=== PATIENT | male | born 1955 | race Caucasian/White ===

== ENCOUNTER 2020-06-24 06:54 | Observation (INO) ==
--- NOTE | 2020-06-16 09:01 | PAT Medication Instructions ---
Medication Instructions Date of Service June 16, 2020 Home Medications Medication Instructions Recorded oxycodone-acetaminophen [Percocet] 1 - 2 tab PO Q6H PRN #40 tab 03/28/18 multivitamin 1 tab PO QAM naproxen sodium [Aleve] 220 mg PO BID PRN atorvastatin 10 mg PO QPM oxycodone-acetaminophen [Percocet] 1 - 2 tab PO Q6H PRN metformin 1,000 mg PO BID ASK your surgeon for instructions naproxen sodium [Aleve] 220 mg PO BID PRN DO NOT take the morning of surgery multivitamin 1 tab PO QAM metformin 1,000 mg PO BID Take morning of surgery With a small sip of water, OTHERWISE NOTHING TO EAT OR DRINK AFTER MIDNIGHT: oxycodone-acetaminophen [Percocet] 1 - 2 tab PO Q6H PRN (okay to take up to 4 hours prior to surgery if needed) Take evening before surgery atorvastatin 10 mg PO QPM oxycodone-acetaminophen [Percocet] 1 - 2 tab PO Q6H PRN (if needed) metformin 1,000 mg PO BID Other Notes If you have any questions please call us at [phone] or [phone] or [phone] or [phone]
--- NOTE | 2020-06-18 11:24 | Anesthesiology Consultation ---
Date of Service June 18, 2020 Assessment & Plan (1) Encounter for pre-operative examination: - Per assessment on 06/18: Travel screen- Traveled to [place] (06/12/20) for golf shopping for new clubs. No further travel planned prior to surgery. No known COV ID-19 positive contacts or current COVID-19 related symptoms. Surgeon arranging preop COVID testing (done 06/18 at [facility] [place]). Awaiting results. - Check BSG AM DOS - S/P Right shoulder arthroscopy with RCR: 03/28/18: LMA#5, atraumatic attempt x1 + PNB at [facility] [place] Chart Review Chart Review: Acceptable Risk for Surgery and Patient seen in Pre Admission Testing Teaching & Discussion Pre-Anesthesia Teaching/Discussion Notes: Instructed NPO after midnight before surgery,except medications with 15 cc of water. Medication instructions pro vided according to the PAT guidelines. History Surgery Operation Date: 06/24/20 09:25 Proposed Procedures p Left Knee Poly Exchange - Cooper Tsai MD Height/Weight Height: 5 ft 8 in Weight: 135 kg Allergies Allergy/AdvReac Type Severity Reaction Status Date / Time adhesive Allergy Mild Bandaids- Verified 06/24/20 07:40 rash Medications Home Medications Medication Instructions Recorded Confirmed Last Taken multivitamin 1 tab PO QAM 03/13/18 06/24/20 06/23/20 06:00 naproxen sodium [Aleve] 220 mg PO BID PRN 03/13/18 06/24/20 Unknown atorvastatin 10 mg PO QPM 03/25/18 06/24/20 06/23/20 20:00 metformin 1,000 mg PO BID 06/15/20 06/24/20 06/23/20 20:00 Active Medications Generic Name Dose Route Start Last Admin Trade Name Freq PRN Reason Stop Dose Admin Acetaminophen 1,000 mg 06/24/20 06:00 06/24/20 08:05 Acetaminophen 500 Mg Tab PO 06/24/20 18:00 1,000 mg PREOP SHERMAN Administration Celecoxib 200 mg 06/24/20 06:00 06/24/20 08:05 Celebrex 200 Mg Cap PO 06/24/20 18:00 200 mg PREOP SHERMAN Administration Famotidine 20 mg 06/24/20 06:00 06/24/20 08:06 Famotidine 20 Mg Tab PO 06/24/20 18:00 20 mg PREOP SHERMAN Administration Gabapentin 300 mg 06/24/20 06:00 06/24/20 08:06 Gabapentin 300 Mg Cap PO 06/24/20 18:00 300 mg PREOP SHERMAN Administration Lactated Ringer's 1,000 mls @ 15 mls/hr 06/24/20 06:00 06/24/20 07:34 Lr IV 06/24/20 18:00 500 mls/hr .Q24H SHERMAN Administration Vancomycin HCl 2,000 mg/ 540 mls @ 200 mls/hr 06/24/20 06:00 06/24/20 07:34 Sodium Chloride IV 06/24/20 18:00 200 mls/hr PREOP SHERMAN Administration Metoclopramide HCl 10 mg 06/24/20 06:00 06/24/20 08:06 Metoclopramide Hcl 10 Mg Tablet PO 06/24/20 18:00 10 mg PREOP SHERMAN Administration Past Medical History Medical History Cancer skin (s/p excision from nose/head/chest) Chronic back pain Hyperlipidemia Morbid obesity Osteoarthritis Pre-diabetes on Metformin Sleep apnea CPAP (compliant) Exercise / Class Metabolic Activity II 4-5 Yardwork/Stairs/Walk up hill (one flight of stairs (no chest pain/no sob )) Past Family History Family History Father Diabetes Past Surgical History Surgical History History of carpal tunnel release R/L History of colonoscopy History of herniorrhaphy umbilical History of tooth extraction History of total knee replacement R/L (2012) Hx of repair of rotator cuff Right shoulder arthroscopy with RCR: 03/28/18: LMA#5, atraumatic attempt x1 + PNB at [facility] [place] Past Anesthesia History No Hx of Anesthesia Complications and No Family Hx of Anesthesia Complications History of PONV No Hx of PONV and Hx of Motion Sickness Social History Smoking Status: Never smoker Do You Dip or Chew Tobacco: No Hx Alcohol Use: Yes Alcohol type: beer alcohol intake frequency: a few times a month Hx Substance Use: No substance use type: does not use Review of Systems Patient denies chest pain, shortness of breath, dyspnea on exertion, fever, chills, cough, wheezing, palpitations. Physical Exam Vital Signs Last Vital Signs Temp 37 C 06/24/20 08:19 Pulse 83 06/24/20 08:19 Resp 20 06/24/20 08:19 BP 125/74 06/24/20 08:19 Pulse Ox 92 06/24/20 08:19 VITALS BP 136/83 P 78 TEMP 98.2 SP02 96%RA RESP 18 PHYSICAL Full neck and c-spine range of motion. Full TMJ range of motion. TMD 3 finger breaths (difficult to palpate) Mallampati Score 4 Dentition: intact, + bridges (upper r/l sides) Lungs: clear throughout to auscultation Cardiac: regular rate and rhythm, no murmurs noted Spine: normal Carotid arteries: negative bruit Extremities: no edema Short, thick neck Testing Laboratory Results 06/18/20 11:42 06/18/20 12:05 PT 10.2 Seconds (9.0-12.0) 06/18/20 11:42 INR 1.0 (0.9-1.1) 06/18/20 11:42 APTT 24.2 Seconds (21.0-31.0) 06/18/20 11:42 Hemoglobin A1c 6.0 % (4.5-5.6) H 06/18/20 11:42 Urine Color Yellow 06/18/20 08:31 Urine Appearance Clear (Clear) 06/18/20 08:31 Urine pH 6.0 (4.5-7.5) 06/18/20 08:31 Ur Specific [place] 1.017 (1.000-1.030) 06/18/20 08:31 Urine Protein Negative (Negative) 06/18/20 08:31 Urine Glucose (UA) Negative (Negative) 06/18/20 08:31 Urine Ketones Negative (Negative) 06/18/20 08:31 Urine Nitrite Negative (Negative) 06/18/20 08:31 Ur Leukocyte Esterase Negative (Negative) 06/18/20 08:31 Blood Type AB Positive 06/18/20 11:42 Antibody Screen NEGATIVE 06/18/20 11:42 06/24/20 07:30 POC Glucose 123 H Electrocardiogram Date: 06/18/20 Findings: + NSR @ (82) Chest X-Ray Date: 02/05/21 FINDINGS: PA and lateral chest radiographs are compared to study dated 11/15/2012. The heart is enlarged. The pulmonary vasculature is noncongested. Chronic resid ual thickening is similar to previous. There is mild bibasilar scarring/atelectasis. No airspace consolidation or pleural effusion is identified. There is no pneumothorax. The skeletal structures are osteopenic. The bony thorax appears intact. IMPRESSION: Cardiomegaly with no active disease in the chest.
[2020-06-18 12:08] LABS: Basophils % (auto) 1.7 %; Eosinophils # (auto) 0.26 K/uL (0-0.5); Eosinophils % (auto) 4.3 %; Hematocrit (blood only) 48.7 % (42-52); Hemoglobin 16.5 g/dL (14.0-18.0); Immature Granulocytes # (auto) 0.01 K/uL (0.00-0.02); Immature Granulocytes % (auto) 0.2 %; Lymphocytes # (auto) 1.84 K/uL (1.2-3.4); Lymphocytes % (auto) 30.5 %; Mean Corpuscular Hemoglobin 30.1 pg (25-34); Mean Corpuscular Hgb Conc 33.9 g/dL (32-36); Mean Corpuscular Volume 88.9 fL (80-100); Monocytes # (auto) 0.69 K/uL (0.11-0.59); Monocytes % (auto) 11.4 %; Neutrophils # (auto) 3.14 K/uL (1.4-6.5); Neutrophils % (auto) 51.9 %; Platelet Count 218 K/uL (130-400); RDW Coefficient of Variation 14.3 % (11.5-14.5); RDW Standard Deviation 46.4 fL (36.4-46.3); Red Blood Count 5.48 M/uL (4.7-6.1); White Blood Count 6.04 K/uL (4.8-10.8)
[2020-06-18 12:16] LABS: Estimated Average Glucose 126 mg/dl
[2020-06-18 12:18] LABS: Appearance Urine Clear (Clear); Bilirubin Urine Negative (Negative); Blood Urine Negative (Negative); Color Urine Yellow; Glucose Urine UA Negative (Negative); Ketones Urine Negative (Negative); Leukocyte Esterase Urine Negative (Negative); Nitrite Urine Negative (Negative); Protein Urine Negative (Negative); Specific Gravity Urine 1.017 (1.000-1.030); Urobilinogen Urine Negative (Negative)
[2020-06-18 12:23] LABS: Partial Thromboplastin Ratio 0.9; Partial Thromboplastin Time 24.2 Seconds (21.0-31.0); Prothrombin Time 10.2 Seconds (9.0-12.0)
[2020-06-18 12:32] LABS: Albumin Level 3.9 gm/dl (3.4-5.0); Calcium 9.4 mg/dl (8.5-10.1); Creatinine Clr Calc Pharmacy 117.7 ml/min; Est GFR (African American) 106.3; Est GFR (Non-African American) 91.7; Potassium 4.7 mmol/L (3.5-5.1)
--- NOTE | 2020-06-18 12:41 | XRay Report ---
TWO VIEW CHEST CLINICAL HISTORY: Preoperative examination. FINDINGS: PA and lateral chest radiographs are compared to study dated 11/15/2012. The heart is enlarge d. The pulmonary vasculature is noncongested. Chronic residual thickening is similar to previous. The re is mild bibasilar scarring/atelectasis. No airspace consolidation or pleural effusion is identifie d. There is no pneumothorax. The skeletal structures are osteopenic. The bony thorax appears intact. IMPRESSION: Cardiomegaly with no active disease in the chest. ACT 112: Negative or not required by law. Electronically signed by: Tiago Licona M.D. 06/18/2020 12:40 PM
--- NOTE | 2020-06-18 13:48 | Electrocardiogram Report ---
Test Reason : Blood Pressure : / mmHG Vent. Rate : 082 BPM Atrial Rate : 082 BPM P-R Int : 166 ms QRS Dur : 074 ms QT Int : 362 ms P-R-T Axes : 074 059 046 degrees QTc Int : 422 ms Normal sinus rhythm Normal ECG When compared with ECG of 12-MAR-2018 14:08, No significant change was found Confirmed by Bob Stevenson ([id number]) on 06/18/2020 1:47:47 PM Referred By: Cooper Tsai Confirmed By:Bob Stevenson
--- NOTE | 2020-06-19 10:02 | History & Physical Report ---
Date of Service June 19, 2020 Assessment & Plan (1) Left knee injury: Patient with work injury to left knee causing fracture of the polyethylene post of his total knee arthroplasty. No evidence of loosening of the metal components of his total knee. Treatment options discussed and surgical intervention was recommended. Risks, benefits and alternatives to surgery including but not limited to infection, DVT, pain, stiffness, need for revision surgery, damage to blood vessels, damage to nerves, PE, , were discussed with the patient and they wish to proceed. Plan will be for left total knee arthroplasty polyethylene exchange. Will need constrained liners available. Surgery scheduled for 06/24/20 at [facility]. All questions answered. Will plan on ASA 81mg BID x 1 mo post op for DVT prophylaxis. F/u post operatively. (2) Instability of left knee joint: (3) History of total knee arthroplasty: Laterality: left Qualified Code(s): Z96.652 - Presence of left artificial knee joint History of Present Illness Chief Complaint: Left knee pain, instability Primary Care Provider: Maximilian Mckeon MD Patient is a 65 year old male with PMHx significant for DM2, BCC, bilateral TKA who presented to the office after a fall at work onto his left knee. He had complaint of pain and instability. On exam it was noted that the had significant instability in the anteroposterior plane indicating a fracture polyethylene bearing. Discussed that he will require surgical intervention and he would like to proceed. Patient denies headaches, sweats, fevers, chills, double vision, blurred vision, cough, sore throat, dysphagia, chest pain, sob, wheezing, n/v/ d/c, numbness, tingling, fatigue, urinary symptoms, mood disorders. ROS positive for left knee pain and instability. Allergies Allergy/AdvReac Type Severity Reaction Status Date / Time adhesive Allergy Mild Bandaids- Verified 06/18/20 10:04 rash Home Medications Medication Instructions Recorded Confirmed Type multivitamin 1 tab PO QAM 03/13/18 06/15/20 History naproxen sodium [Aleve] 220 mg PO BID PRN 03/13/18 06/15/20 History atorvastatin 10 mg PO QPM 03/25/18 06/15/20 History metformin 1,000 mg PO BID 06/15/20 06/15/20 History Past Med/Surg History Medical History Cancer skin (s/p excision from nose/head/chest) Chronic back pain Hyperlipidemia Morbid obesity Osteoarthritis Pre-diabetes on Metformin Sleep apnea CPAP (compliant) Surgical History History of carpal tunnel release R/L History of colonoscopy History of herniorrhaphy umbilical History of tooth extraction History of total knee replacement R/L (2012) Hx of repair of rotator cuff Right shoulder arthroscopy with RCR: 03/28/18: LMA#5, atraumatic attempt x1 + PNB at [facility] [place] Family History Father Diabetes Social History Smoking Status: Never smoker Second Hand Exposure: No; Do You Dip or Chew Tobacco: No; Tobacco Cessation Education Requested by Patient: No Hx Alcohol Use: Yes Alcohol type: beer Hx Substance Use: No Preferred Language: [place] Communication Ability: Effective Tile Setter Apprentice Required: No Beliefs That Will Affect Care: None Current Living Situation: Spouse Other Information That Helps Us Care for You: No Feels Safe at Home: Yes Safety Concerns: Feels Safe At This Time Assistive Devices: CPAP and Glasses Assistive Devices Comment: BRIDGE TO TOP Review of Systems All systems reviewed & are unremarkable except as noted in HPI & below Physical Exam Constitutional: well developed and well nourished; no acute distress Eyes: PERRL, conjunctivae normal, anicteric sclerae ENMT: external ear and nose normal, oropharynx normal Neck: trachea midline, no thyromegaly Respiratory: normal respiratory effort, lungs clear to auscultation Cardiovascular: RRR, no murmur, no edema Musculoskeletal: Left knee: ROM-0-95 degrees. He has subluxation of his tibia on femur with passive flexion and extension in anteroposterior plane. No endpoint with posterior drawer of the polyethylene post on cam of total knee consistent with fracture of poly. Mild effusion. No erythema. Incision well healed. Stable to valus and varus stress in extension. Negative SLR. No defects medial retinaculum or quad tendon. Neurologic: patellar DTR's 2+ bilat, sensation intact Psychiatric: A+Ox3, euthymic affect Results & Data ([facility]) Laboratory Results Lab Results 02/05/21 02/05/21 02/05/21 Range/Units 08:31 11:42 11:42 WBC 6.04 (4.8-10.8) K/uL RBC 5.48 (4.7-6.1) M/uL Hgb 16.5 (14.0-18.0) g/dL Hct 48.7 (42-52) % MCV 88.9 (80-100) fL MCH 30.1 (25-34) pg MCHC 33.9 (32-36) g/dL RDW Std Deviation 46.4 H (36.4-46.3) fL RDW Coeff of Melanie 14.3 (11.5-14.5) % Plt Count 218 (130-400) K/uL MPV 11.0 H (7.4-10.4) fL Immature Gran % (Auto) 0.2 % Neut % (Auto) 51.9 % Lymph % (Auto) 30.5 % [place] % (Auto) 11.4 % Eos % (Auto) 4.3 % Baso % (Auto) 1.7 % Neut # (Auto) 3.14 (1.4-6.5) K/uL Lymph # (Auto) 1.84 (1.2-3.4) K/uL [place] # (Auto) 0.69 H (0.11-0.59) K/uL Eos # (Auto) 0.26 (0-0.5) K/uL Baso # (Auto) 0.10 (0-0.2) K/uL Immature Gran # (Auto) 0.01 (0.00-0.02) K/uL PT (9.0-12.0) Seconds INR (0.9-1.1) APTT (21.0-31.0) Seconds PTT Ratio Sodium (136-145) mmol/L Potassium (3.5-5.1) mmol/L Chloride (98-107) mmol/L Carbon Dioxide (21-32) mmol/L Anion Gap (3-11) BUN (7-18) mg/dl Creatinine (0.6-1.4) mg/dl Est Cr Clr Drug Dosing ml/min Est GFR ( Amer) Est GFR (Non-Af Amer) BUN/Creatinine Ratio (10-20) Glucose (70-99) mg/dl Estimat Average Glucose mg/dl Hemoglobin A1c (4.5-5.6) % Calcium (8.5-10.1) mg/dl Albumin (3.4-5.0) gm/dl Urine Color Yellow Urine Appearance Clear (Clear) Urine pH 6.0 (4.5-7.5) Ur Specific [place] 1.017 (1.000-1.030) Urine Protein Negative (Negative) Urine Glucose (UA) Negative (Negative) Urine Ketones Negative (Negative) Urine Blood Negative (Negative) Urine Nitrite Negative (Negative) Urine Bilirubin Negative (Negative) Urine Urobilinogen Negative (Negative) Ur Leukocyte Esterase Negative (Negative) Blood Type AB Positive Antibody Screen NEGATIVE 06/18/20 06/18/20 06/18/20 Range/Units 11:42 11:42 12:05 WBC (4.8-10.8) K/uL RBC (4.7-6.1) M/uL Hgb (14.0-18.0) g/dL Hct (42-52) % MCV (80-100) fL MCH (25-34) pg MCHC (32-36) g/dL RDW Std Deviation (36.4-46.3) fL RDW Coeff of Melanie (11.5-14.5) % Plt Count (130-400) K/uL MPV (7.4-10.4) fL Immature Gran % (Auto) % Neut % (Auto) % Lymph % (Auto) % [place] % (Auto) % Eos % (Auto) % Baso % (Auto) % Neut # (Auto) (1.4-6.5) K/uL Lymph # (Auto) (1.2-3.4) K/uL [place] # (Auto) (0.11-0.59) K/uL Eos # (Auto) (0-0.5) K/uL Baso # (Auto) (0-0.2) K/uL Immature Gran # (Auto) (0.00-0.02) K/uL PT 10.2 (9.0-12.0) Seconds INR 1.0 (0.9-1.1) APTT 24.2 (21.0-31.0) Seconds PTT Ratio 0.9 Sodium 139 (136-145) mmol/L Potassium 4.7 (3.5-5.1) mmol/L Chloride 106 (98-107) mmol/L Carbon Dioxide 27 (21-32) mmol/L Anion Gap 6.0 (3-11) BUN 18 (7-18) mg/dl Creatinine 0.83 (0.6-1.4) mg/dl Est Cr Clr Drug Dosing 117.7 ml/min Est GFR ( Amer) 106.3 Est GFR (Non-Af Amer) 91.7 BUN/Creatinine Ratio 22.0 H (10-20) Glucose 91 (70-99) mg/dl Estimat Average Glucose 126 mg/dl Hemoglobin A1c 6.0 H (4.5-5.6) % Calcium 9.4 (8.5-10.1) mg/dl Albumin 3.9 (3.4-5.0) gm/dl Urine Color Urine Appearance (Clear) Urine pH (4.5-7.5) Ur Specific [place] (1.000-1.030) Urine Protein (Negative) Urine Glucose (UA) (Negative) Urine Ketones (Negative) Urine Blood (Negative) Urine Nitrite (Negative) Urine Bilirubin (Negative) Urine Urobilinogen (Negative) Ur Leukocyte Esterase (Negative) Blood Type Antibody Screen Diagnostic Findings Left knee: Bermeo and Nephew Journey II total knee arthroplasty in stable position. No evidence of loosening. Patella midline, tracking well. No fracture noted.
[~2020-06-24 06:54] MED LIST: ACETAMINOPHEN 500 MG TAB PO SCH; BUPIVACAINE 0.25% 30 ML VIAL ONE; BUPIVACAINE 0.5 % 5 MG/1 ML PF 10ML VIAL ONE; CeleBREX 200 MG CAP PO SCH; FAMOTIDINE 20 MG TAB PO SCH; GABAPENTIN 300 MG CAP PO SCH; LR 500ML BOLUS, THEN 15ML/HR IV SCH; METOCLOPRAMIDE HCL 10 MG TABLET PO SCH; ROPIVACAINE 0.5% HCL/PF 150 MG, BUPIVACAINE 0.75% MPF 20 ML, EPINEPHrine 30MG/30ML (OR ... INSTIL SCH; TRANEXAMIC ACID 1,000 MG **IV Intra-op IV SCH; TRANEXAMIC ACID 1,000 MG **IV Pre-op IV SCH; VANCOMYCIN HCL 2,000 MG in SODIUM CHLORIDE 0.9% 500 ML IV SCH
[2020-06-24] MEDS ORDERED: PROPOFOL IV EMULSION 10 MG/ML 20 ML VIAL IV ONE (08:08)
[2020-06-24] MEDS ORDERED: MIDAZOLAM HCL 1 MG/ML 2ML VIAL ONE ×2 (08:08→08:09)
[2020-06-24] MEDS ORDERED: LIDOCAINE HCL 2% 2 ML VIAL/AMP(20MG/ML) INFIL ONE (08:08)
[2020-06-24] MEDS ORDERED: LARYING-O-JET KIT (LTA) ONE (08:53)
[2020-06-24] MEDS ORDERED: fentaNYL citrate 100 MCG/2 ML VIAL ONE (08:53)
[2020-06-24] MEDS ORDERED: ONDANSETRON INJ 2 MG/ML 2 ML VIAL ONE (08:53)
[2020-06-24] MEDS ORDERED: DEXAMETHASONE SOD INJ 4 MG/ML VIAL ONE (08:53)
[2020-06-24] MEDS ORDERED: SUCCINYLCHOLINE CHLORIDE 20 MG/ML 10 ML VIAL IV ONE (08:53)
[2020-06-24] MEDS ORDERED: ONDANSETRON INJ 2 MG/ML 2 ML VIAL IV PRN ×2 (09:00→13:56)
[2020-06-24] MEDS ORDERED: ATROPINE SULFATE 0.1 MG/ML 10ML SYR IV PRN (09:00)
[2020-06-24] MEDS ORDERED: HYDROmorphone INJ 1 MG/ML SYRINGE IV PRN (09:00)
[2020-06-24] MEDS ORDERED: fentaNYL citrate 100 MCG/2 ML VIAL IV PRN (09:00)
[2020-06-24] MEDS ORDERED: ePHEDrine sulfate 50 MG/ML AMP IV PRN (09:00)
--- NOTE | 2020-06-24 09:36 | History & Physical Bridge Note ---
Date of Service June 24, 2020 History & Physical Bridge Note I have examined the patient, reviewed the History & Physical and in the interval since the performance of the History & Physical I have noted the following changes of clinical significance: no changes noted
[2020-06-24] MEDS ORDERED: BACITRACIN INJ 50,000 UNIT VIAL ONE (09:44)
[2020-06-24] MEDS ORDERED: ORTHO JOINT ANESTHETIC ONE (09:44)
--- NOTE | 2020-06-24 12:00 | Post Operative Brief Note ---
Immediate Post Op Note v1 Date of Surgery June 24, 2020 Pre & Post Diagnosis Operation Date: 06/24/20 09:25 Pre-Op Diagnosis: Left total knee replacement posttraumatic fractured Polyethylene Liner Post-Op Diagnosis: Left total knee replacement posttraumatic fractured Polyethylene Liner, synovitis, heterotopic ossification I identified the patient and participated in the time-out.: Yes Procedure Operation Date: 06/24/20 09:25 Actual Procedures p Left Knee Poly Exchange; Synovectomy, Excision of Heterotopic Bone(Left) - Cooper Tsai MD Surgeon Cooper Tsai MD Dielectric Testing Machine Operator Martin BASILIO Estimated Blood Loss 10 Findings Consistent with Post-Op Diagnosis Drains Hemovac Drain Anesthesia Type MAC Spinal Regional Complications none Disposition Accompanied Patient To Recovery: No Disposition: Recovery Room Overlapping Procedure I was immediately available: during the entire case.
--- NOTE | 2020-06-24 12:12 | Operative Report ---
Post Operative Report Pre & Post Diagnosis Operation Date: 06/24/20 09:25 Pre-Op Diagnosis: Left total knee replacement posttraumatic fractured Polyethylene Liner Post-Op Diagnosis: Left total knee replacement posttraumatic fractured Polyethylene Liner, synovitis, heterotopic ossification I identified the patient and participated in the time-out.: Yes Procedure Operation Date: 06/24/20 09:25 Actual Procedures p Left Knee Poly Exchange; Synovectomy, Excision of Heterotopic Bone(Left) - Cooper Tsai MD Surgeon Cooper Tsai MD Precision Layout Worker Martin BASILIO Estimated Blood Loss 10 Findings Consistent with Post-Op Diagnosis Specimens Synovium Drains 2 Hemovac Anesthesia Type MAC Spinal Regional Complications none Disposition Accompanied Patient To Recovery: No Disposition: Recovery Room Indications 65-year-old male post left knee replacement 2012 doing well until recent injury when he fell off a ladder and developed instability of his knee replacement with exam consistent with fracture polyethylene post of a posterior stabilized total knee replacement Description of Procedure Patient was placed under spinal MAC regional block anesthesia. A pneumatic tourniquet was placed by his obese left upper thigh. Left knee exam demonstrated he had varus valgus instability and posterior instability with increased posterior drawer and subluxation consistent with fracture polyethylene post. Range of motion was 0 through 95 degrees. Moderate effusion. No erythema drainage or signs of infection. Left lower extremity was prepped and draped in usual sterile fashion. Leg was elevated exsanguinated with Esmarch bandage and pneumatic tourniquet was raised to 350 mmHg. A longitudinal incision was made through his previous scar. Scarred subcutaneous fat was elevated off the fascia. An incision was made to the medial retinaculum extending up to the mid third of the quadriceps tendon and extended down to the medial tibial tubercle. Let us make an incision to the retinaculum I encountered several areas of heterotopic ossification within the medial retinacular repair from previous surgery. These areas of bone were shelled out from the remainder of the tendon tissue and excised. There was a moderate knee effusion noted no signs of infection. Patient had scarred synovium and some [place]. The retropatellar fat pad was significantly scarred as well. This was adherent to the anterior tibia. The tibial polyethylene was fractured with a large piece of the post being fractured off at the base of its attachment to the remainder of the tibial polyethylene. This was in the notch and easily retrievable and removed. To gain further exposure and remove the scarred synovium a synovectomy was performed with electrocautery. Both medial and lateral gutters and suprapatellar scarred synovial tissue was resected. Some releases were performed around the proximal medial lateral tibial plateau to get exposure and the scarred retropatellar fat pad was resected down to the tendon and the tendon was freed up off the anterior tibia leaving the tibial tubercle attachment intact. All components were stable patella femur and tibia. Retractors were placed and the main to the tibial polyethylene was removed. There is some bone behind the cam of the femoral component which was resected to clear the space for the new post. And some synovium in the posterior capsule was resected. The knee was then copiously irrigated with antibiotic solution with bacitracin. Trial reduction was performed and a 6 x 11 mm posterior stabilized Bermeo & Nephew polyethylene insert gave stable range of motion and was appropriate fit. The trial was removed and orthomix was injected and furthe r irrigation of the knee performed. The final component which was the 5-611 mm left tibial polyethylene Bermeo & Nephew posterior stabilized polyethylene component was inserted with insertion device with stable fixation. Knee had full stability through full range of motion. Betadine soak was used for the orthomix was injected into the subcutaneous tissues. Further irrigation was performed with saline solution. 2 drains were placed brought out laterally. The quadriceps tendon and medial retinaculum were closed with [id number] #1 Vicryl sutures. The knee was taken through range of motion and the pair secure through full range of motion which was 0 through 115 degrees. The subcutaneous tissues were closed into 2-0 Vicryl sutures skin was closed with tito sterile dressings were applied. The patient tolerated procedure well. Martin BASILIO has been for lead dental assistant function as persistent with leg positioning prepping draping soft tissue retraction and assisted in the subcut aneous and skin closure and will participate in postop care the patient. Thank you I attest to the content of the Intraoperative Record and any orders documented therein. Any exceptions are noted below.
--- NOTE | 2020-06-24 12:48 | XRay Report ---
XR knee LT 1 or 2V routine CLINICAL HISTORY: Surgical Post Op COMPARISON: 03/19/2013 DISCUSSION: There are postsurgical changes of a total left knee arthroplasty and patellar resurfacing . Femoral tibial components appear well seated. There are overlying skin tito and surgical drains. . IMPRESSION: Postsurgical changes of a total left knee arthroplasty. ACT 112: Negative or not required by law. Electronically signed by: Jose Luis Long M.D. 06/24/2020 12:47 PM
[2020-06-24] MEDS: SODIUM CHLORIDE 0.9% 1000ML 1,000 ML IV SCH (13:55)
[2020-06-24] MEDS ORDERED: NON-FORMULARY MEDICATION (Naproxen Sodium [Aleve] 220 mg Capsule) PO PRN (13:56)
[2020-06-24] MEDS ORDERED: METOCLOPRAMIDE HCL INJ 5 MG/ML 2 ML VIAL IV PRN (13:56)
[2020-06-24] MEDS ORDERED: HYDROmorphone INJ 0.5 MG/0.5 ML SYR IV PRN (13:56)
[2020-06-24] MEDS ORDERED: bisacodyL 10 MG SUPP PR PRN (13:56)
[2020-06-24] MEDS ORDERED: MAGNESIUM HYDROXIDE SUSP 30 ML UDC PO PRN (13:56)
[2020-06-24] MEDS ORDERED: NALOXONE HCL 0.4 MG/1 ML VIAL/CARP IV PRN (13:56)
[2020-06-24] MEDS ORDERED: TAMSULOSIN HCL 0.4 MG CAP PO PRN (13:56)
[2020-06-24] MEDS ORDERED: PHARMACY GLYCEMIC MGMT CONSULT PRN (14:11)
[2020-06-24] MEDS ORDERED: INFLUENZA ADMINISTRATION CHARGE ONE (14:28)
[2020-06-24] MEDS ORDERED: INFLUENZA VACCINE HIGH DOSE 65+ 0.7 ML SYR IM ONE (14:28)
--- NOTE | 2020-06-24 14:29 | Pharmacy Report ---
Glycemic Ortho Sign Off Note - Date of Service June 24, 2020 - Scope Glycemic Pharmacist consulted for glycemic control and to write orders per [facility] inpatient glycemic control protocol. - Objective Accuchecks BSG (last 24hrs):: 06/24/20 06/24/20 07:30 12:09 POC Glucose 123 H 123 H HbA1c:: Hemoglobin A1c 6.0 % (4.5-5.6) H 06/18/20 11:42 - Assessment * Pt is maintained on oral antidiabeticagent[s]as anoutpatient with excellent control per recent A1c * Oral agents are not recommended for inpatient use d/t drug interactions, changing PO intake, and difficulty titrating for acute hyper/hypoglycemia. * Recommended regimen for inpatient use is SQ insulin * Low stress weight based insulin dosing appropriate since patient has minimal risk factors for insulin resistance (i.e. no steroids). * Appropriate to DC insulin and resume outpatient antidiabetic regimen at discharge * Goal is to maintain BSGs <200 mg/dl (ideally <150 mg/dl) to prevent post op complications - Plan For Inpatient Glycemic Control * Basal insulin * Not needed based on A1c, pre-op BSGs, and minimal risk factors for insulin resistance * Bolus insulin * Utilize low stress weight based NovoLog parameters per scale ACHS * Pharmacy has entered glycemic orders and is signing off of the glycemic cons ult. We will no longer be making adjustments to inpatient regimen. Please feel free to re-consult if needed. Thank you.
[2020-06-24] MEDS: ACETAMINOPHEN 500 MG TAB PO SCH ×2 (14:40→21:21)
[2020-06-24] MEDS: INSULIN ASPART 100 UNITS/ML 3 ML PEN SC SCH ×3 (14:57→21:30)
--- NOTE | 2020-06-24 15:50 | Anesthesiology Progress Note ---
Date of Service June 24, 2020 Anesthesia Post Procedure Vital Signs Vital Signs: Temp Pulse Pulse Pulse Resp BP BP 06/24/20 15:01 36.3 C L 73 16 106/67 06/24/20 14:30 36.6 C 86 19 121/79 06/24/20 14:29 36.6 C 121/79 06/24/20 13:56 36.3 C L 78 16 108/68 06/24/20 13:35 36.2 C L 72 17 107/67 06/24/20 13:25 73 17 111/63 06/24/20 13:15 72 20 109/65 06/24/20 13:05 79 19 111/69 06/24/20 12:55 73 17 110/67 06/24/20 12:45 78 20 119/75 06/24/20 12:35 78 19 116/67 06/24/20 12:25 68 17 110/67 06/24/20 12:15 74 18 116/67 06/24/20 12:07 36.1 C L 89 16 123/56 L 06/24/20 08:19 37 C 83 20 125/74 06/24/20 07:36 37 C 93 H 20 154/110 H Pulse Ox 06/24/20 15:01 97 06/24/20 14:30 96 06/24/20 14:29 97 06/24/20 13:56 96 06/24/20 13:35 96 06/24/20 13:25 97 06/24/20 13:15 96 06/24/20 13:05 98 06/24/20 12:55 96 06/24/20 12:45 97 06/24/20 12:35 97 06/24/20 12:25 96 06/24/20 12:15 92 06/24/20 12:07 92 06/24/20 08:19 92 06/24/20 07:36 96 Transfer of Care Handoff Completed per policy Notes Mental Status: alert / awake / arousable and participated in evaluation Nausea / Vomiting: adequately controlled Pain: adequately controlled Airway Patency, RR, SpO2: stable & adequate BP & HR: stable & adequate Hydration State: stable & adequate Neuraxial Anesthesia: was administered and sensory block is resolving Anesthetic Complications: no major complications apparent and Pt Satisfied with anesthetic care
--- NOTE | 2020-06-24 16:01 | Hospitalist Consultation ---
Date of Consultation June 24, 2020 Assessment & Plan (1) S/P knee surgery: This is a 65yo M with a PMH of prediabetes, HLD and other medical problems listed below who is POD#0 s/p L knee poly Exchange, synovectomy and excision of heterotopic bone by Dr. Tsai. POD#0 s/p L knee poly Exchange, synovectomy and excision of heterotopic bone by Dr. Tsai Pt is doing well post-operatively Per ortho for pain control, wound care, anticoagulation and activities Monitor H&H, continue incentive spirometry, PT/OT when appropriate (2) Hyperlipidemia: Continue pravastatin (3) Prediabetes: A1c 5.8 in Dec 2019. Holding metformin while in-patient. SSI per protocol. BSG AC HS (4) Sleep apnea: CPAP HS PCP: Linda Dispo: Per primary service Patient seen in collaboration with Dr. Reza. Please see addendum. 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, 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 Tsai. History of bilateral knee replacements in 2012. Fell off of a ladder at work a few weeks ago and had persistent knee pain and difficulty with ambulation since then. Followed up with [facility] in clinic and learned he had fractured prosthetic device. Is feeling well post operatively. No knee pain. Denies fever, chills, lightheadedness, chest pain, nausea, vomiting, abdominal pain, dysuria. Allergies Allergy/AdvReac Type Severity Reaction Status Date / Time adhesive Allergy Mild Bandaids- Verified 06/24/20 07:40 rash Home Medications Medication Instructions Recorded Confirmed Type multivitamin 1 tab PO QAM 03/13/18 06/24/20 History naproxen sodium [Aleve] 220 mg PO BID PRN 03/13/18 06/24/20 History metformin 1,000 mg PO BID 06/15/20 06/24/20 History albuterol sulfate 2 puff INHALATION QID PRN 06/24/20 06/24/20 History fluticasone propionate [Flovent 2 puff INHALATION BID 06/24/20 06/24/20 History HFA] loratadine 10 mg PO DAILY PRN 06/24/20 06/24/20 History pravastatin 10 mg PO DAILY 06/24/20 06/24/20 History Patient History Medical History Cancer skin (s/p excision from nose/head/chest) Chronic back pain Hyperlipidemia Morbid obesity Osteoarthritis Pre-diabetes on Metformin Sleep apnea CPAP (compliant) Surgical History History of carpal tunnel release R/L History of colonoscopy History of herniorrhaphy umbilical History of tooth extraction History of total knee replacement R/L (2012) Hx of repair of rotator cuff Right shoulder arthroscopy with RCR: 03/28/18: LMA#5, atraumatic attempt x1 + P[place] at [facility] [place] Family History Father Diabetes Social History Smoking Status: Never smoker Second Hand Exposure: No; Do You Dip or Chew Tobacco: No; Tobacco Cessation Education Requested by Patient: No Hx Alcohol Use: Yes Alcohol type: beer Hx Substance Use: No Preferred Language: Persian Communication Ability: Effective Tire Bagger Required: No Beliefs That Will Affect Care: None Current Living Situation: Spouse Other Information That Helps Us Care for You: No Feels Safe at Home: Yes Safety Concerns: Feels Safe At This Time Assistive Devices: CPAP and Glasses Assistive Devices Comment: BRIDGE TO TOP Review of Systems Review of Systems: At least ten systems reviewed and negative except as noted in the HPI. Physical Exam Physical Exam: General Appearance: WD/WN, vitals as above, NAD, sitting up in bed, pleasant, obese, conversing easily Head: normocephalic, atraumatic Eyes: normal inspection, PERRL, conjunctivae normal, anicteric sclerae ENT: external ear and nose normal, oropharynx normal Neck: normal visual inspection, trachea midline, no thyromegaly Respiratory: normal respiratory effort, lungs clear to auscultation, no wheeze, rales, rhonchi. No accessory muscle use Cardiovascular: regular rate, rhythm, no murmur, normal peripheral pulses, no BLE edema Abdomen/GI: normal bowel sounds, soft, nontender, no hepatosplenomegaly Extremities/Musculoskeletal: L knee with dressing in place. Drain visualized. No cyanosis or clubbing, extremities motor strength 5/5 Neurologic: PERRL, CN's II-XI intact bilaterally and moves all extremities Psychiatric: A+Ox3, euthymic affect Skin: no rashes, normal color, warm/dry Results & Data Results & Data ([facility]) Vital Signs (Past 12 Hours) Vital Signs Temp Pulse Pulse Pulse Resp BP BP 06/24/20 15:57 36.3 C L 78 16 112/68 06/24/20 15:01 36.3 C L 73 16 106/67 06/24/20 14:30 36.6 C 86 19 121/79 06/24/20 14:29 36.6 C 121/79 06/24/20 13:56 36.3 C L 78 16 108/68 06/24/20 13:35 36.2 C L 72 17 107/67 06/24/20 13:25 73 17 111/63 06/24/20 13:15 72 20 109/65 06/24/20 13:05 79 19 111/69 06/24/20 12:55 73 17 110/67 06/24/20 12:45 78 20 119/75 06/24/20 12:35 78 19 116/67 06/24/20 12:25 68 17 110/67 06/24/20 12:15 74 18 116/67 06/24/20 12:07 36.1 C L 89 16 123/56 L 06/24/20 08:19 37 C 83 20 125/74 06/24/20 07:36 37 C 93 H 20 154/110 H Pulse Ox 06/24/20 15:57 97 06/24/20 15:01 97 06/24/20 14:30 96 06/24/20 14:29 97 06/24/20 13:56 96 06/24/20 13:35 96 06/24/20 13:25 97 06/24/20 13:15 96 06/24/20 13:05 98 06/24/20 12:55 96 06/24/20 12:45 97 06/24/20 12:35 97 06/24/20 12:25 96 06/24/20 12:15 92 06/24/20 12:07 92 06/24/20 08:19 92 06/24/20 07:36 96
[2020-06-24] MEDS: oxyCODONE HCL IR 5 MG TAB (IMMEDIATE RELEASE) PO PRN ×2 (17:01→21:48)
[2020-06-24] MEDS: ceFAZolin 2000MG 2,000 MG/15 ML SYR IV SCH (17:01)
[2020-06-24] MEDS ORDERED: ATORVASTATIN 10 MG TAB PO SCH (21:00)
[2020-06-24] MEDS: DOCUSATE SODIUM 100 MG CAP PO SCH (21:21)
[2020-06-24] MEDS: ASPIRIN 81 MG ECTAB PO SCH (21:21)
[2020-06-24] MEDS: SENNA 8.6 MG TAB PO SCH ×2 (21:21→21:23)
[2020-06-25] MEDS: SODIUM CHLORIDE 0.9% 1000ML 1,000 ML IV SCH (01:36)
[2020-06-25] MEDS: oxyCODONE HCL IR 5 MG TAB (IMMEDIATE RELEASE) PO PRN ×3 (02:04→10:46)
[2020-06-25] MEDS: ceFAZolin 2000MG 2,000 MG/15 ML SYR IV SCH (02:06)
[2020-06-25 06:03] LABS: Hematocrit (blood only) 43.3 % (42-52); Hemoglobin 14.4 g/dL (14.0-18.0); Mean Corpuscular Hemoglobin 29.9 pg (25-34); Mean Corpuscular Hgb Conc 33.3 g/dL (32-36); Mean Platelet Volume 10.5 fL (7.4-10.4); Platelet Count 174 K/uL (130-400); RDW Coefficient of Variation 14.2 % (11.5-14.5); RDW Standard Deviation 46.9 fL (36.4-46.3); Red Blood Count 4.81 M/uL (4.7-6.1); White Blood Count 7.53 K/uL (4.8-10.8)
[2020-06-25] MEDS: ACETAMINOPHEN 500 MG TAB PO SCH (06:16)
[2020-06-25 06:38] LABS: BUN Creatinine Ratio 23.6 (10-20); Calcium 7.8 mg/dl (8.5-10.1); Creatinine Clr Calc Pharmacy 112.2 ml/min; Est GFR (African American) 104.7; Est GFR (Non-African American) 90.4; Potassium 4.3 mmol/L (3.5-5.1)
--- NOTE | 2020-06-25 07:14 | Orthopedic Progress Note ---
Date of Service June 25, 2020 Assessment & Plan (1) Instability of left knee joint: POD#1 left knee poly exchange, excision scar, excision heterotopic bone -PT/OT -Pain management -AM labs-hemoglobin 14.4 this morning -DVT prophylaxis-SCDs, TEDs, ASA 81mg BID -D/C planning-home with home health likely today. (2) History of total knee arthroplasty: Admission and Anticipated Discharge Date Admission Date: June 24, 2020 Subjective POD#1 poly exchange. Patient doing well, pain controlled. Denies any chest randall, sob, dizziness, n/v/d. Review of Systems Review of Systems: All systems reviewed & are unremarkable except as noted in HPI & below Physical Exam Physical Exam: Dressing is c/d/i, hemovac in place, AMARI suctioning. No calf tenderness. Toes are mobile with good dorsiflexion. Distally n/v status and sensation intact. Constitutional: well developed and well nourished; no acute distress Results & Data ([facility]) Vital Signs (Past 12 Hours) Vital Signs Temp Pulse Resp BP Pulse Ox 06/25/20 02:51 36.4 C L 71 17 123/81 93 06/24/20 23:04 36.4 C L 83 16 129/75 94 06/24/20 19:30 36.4 C L 76 16 107/70 94 (1) History of total knee arthroplasty Laterality: left Qualified Code(s): Z96.652 - Presence of left artificial knee joint
[2020-06-25] MEDS: ASPIRIN 81 MG ECTAB PO SCH (08:41)
[2020-06-25] MEDS: DOCUSATE SODIUM 100 MG CAP PO SCH (08:42)
[2020-06-25] MEDS: INSULIN ASPART 100 UNITS/ML 3 ML PEN SC SCH ×2 (08:43→12:34)
[2020-06-25] MEDS ORDERED: MULTIVITAMIN TAB PO SCH ×2 (09:00)
--- NOTE | 2020-06-26 10:02 | Discharge Summary ---
Date of Service June 26, 2020 Admission HPI Per Admitting Provider Patient is a 65 year old male with PMHx significant for DM2, BCC, bilateral TKA who presented to the office after a fall at work onto his left knee. He had complaint of pain and instability. On exam it was noted that the had significant instability in the anteroposterior plane indicating a fracture polyethylene bearing. Discussed that he will require surgical intervention and he would like to proceed. Patient denies headaches, sweats, fevers, chills, double vision, blurred vision, cough, sore throat, dysphagia, chest pain, sob, wheezing, n/v/d/c, numbness, tingling, fatigue, urinary symptoms, mood disorders. ROS positive for left knee pain and instability. Admission Exam Per Admitting Provider Constitutional: well developed and well nourished; no acute distress Eyes: PERRL, conjunctivae normal, anicteric sclerae ENMT: external ear and nose normal, oropharynx normal Neck: trachea midline, no thyromegaly Respiratory: normal respiratory effort, lungs clear to auscultation Cardiovascular: RRR, no murmur, no edema Musculoskeletal: Left knee: ROM-0-95 degrees. He has subluxation of his tibia on femur with passive flexion and extension in anteroposterior plane. No endpoint with posterior drawer of the polyethylene post on cam of total knee consistent with fracture of poly. Mild effusion. No erythema. Incision well healed. Stable to valus and varus stress in extension. Negative SLR. No defects medial retinaculum or quad tendon. Neurologic: patellar DTR's 2+ bilat, sensation intact Psychiatric: A+Ox3, euthymic affect Principal Diagnosis Left knee fractured poly Discharge Exam Constitutional well developed and well nourished; no acute distress Eyes PERRL, conjunctivae normal, anicteric sclerae ENMT external ear and nose normal, oropharynx normal Neck trachea midline, no thyromegaly Respiratory normal respiratory effort, lungs clear to auscultation Cardiovascular RRR, no murmur, no edema Neurologic patellar DTR's 2+ bilat, sensation intact Psychiatric A+Ox3, euthymic affect Discharge Data Allergies Allergy/AdvReac Type Severity Reaction Status Date / Time adhesive Allergy Mild Bandaids- Verified 06/24/20 07:40 rash Consultations 06/21/20 12:22 Consult Hospitalist Routine 06/24/20 13:56 Consult Case Management - Discharge Planning Routine Procedures Performed Operation Date: 06/24/20 09:25 Actual Procedures p Left Knee Poly Exchange; Synovectomy, Excision of Heterotopic Bone(Left) - Cooper Tsai MD Ordered Studies 06/24/20 05:00 US - OR guided needle placemen Routine Hospital Course (1) Instability of left knee joint: POD#1 left knee poly exchange, excision scar, excision heterotopic bone. Patient has an uneventful hospital course. DOS 06/24/20 -PT/OT-ROM to 85 degrees, ambulated 200 feet -Pain management -AM labs-hemoglobin 14.4 this morning -DVT prophylaxis-SCDs, TEDs, ASA 81mg BID -Dr. Reza of medicine service was consulted for medical management during admission -D/C planning-home with home health likely today. (2) History of total knee arthroplasty: Total Time Total Time Spent Total Time Spent (In Minutes): 20 Discharge Plan Discharge Items Patient Disposition: Home - Home Health Services Reason For Visit: Left Knee Fractured Poly S/P TKA Discharge Diagnosis: Left knee fractured poly Activity: Per Instructions section Non-emergency contact: Surgeon Call non-emergency contact if: you have any medication questions, your pain is not controlled, your pain is unusual for you, your pain is concerning for you, you have a fever, your temperature is above 101, your wound has increased redness and your wound has increased drainage Follow-up/Referrals: Maximilian Mckeon MD [Primary Care Provider] - Diet: Regular Addtl Attending Provider Instructions: ACTIVITY RECOMMENDATIONS: SELF CARE INSTRUCTIONS AFTER TOTAL KNEE REPLACEMENT A. You may need to continue a physical therapy program after discharge from the hospital. There are several options available to you. Your doctor will assist you in selecting the best one for you. 1. An out-patient facility 2 to 3 times a week for therapy or home therapy. 2. Continue working on all exercises taught to you in the hospital. Your goals should be to increase bending of your knee to 90 degrees and beyond and to fully straighten your knee. B. You may progress at your own pace from walking with a walker or crutches to a cane; then to no assistive devices. C. Make walking a part of your daily routine. Be up as much as comfortable with rest periods throughout the day. Rest with leg elevation is very important. Use the ice wrap frequently for the first 3-4 weeks. D. There are no restrictions on activities. You may ride in a car, shop, participate in control board operator and all social activities. E. Wear the long elastic stockings (RADHA hose) 20 hours a day for 2 weeks after surgery. They can be removed several times a day for laundering and for a bath. F. You may shower, no tub baths until cleared by your doctor. SPECIAL CARE INSTRUCTIONS: VERY IMPORTANT TO READ AND REVIEW A. There are a few signs you need to watch for after you are home. Call [facility] if you notice any of the followin. Increased severe knee pain. Some pain is expected especially when you exercise. 2. Increased swelling in your leg or knee; pain or swelling of the calf muscle in either lower leg. 3. Any fluid drainage from the incision. 4. Shortness of breath or chest pain. B. Please call [facility] at if you have any concerns or questions about your operation or recovery. The doctor or his nurse will return your call promptly. C. You must take antibiotics before dental work, bladder, bowel or other surgery. Your doctor will provide you with a permanent care to carry describing this precaution. IMPORTANT: * REMEMBER TO TAKE ASPIRIN, 81 MG, TWICE DAILY FOR 4 WEEKS UNLESS OTHERWISE DIRECTED. THIS IS YOUR BLOOD THINNER. * HIGH RISK PATIENTS MAY BE PRESCRIBED A STRONGER BLOOD THINNER. THIS WILL BE PROVIDED AT DISCHARGE. * CALL IF INCREASED PAIN, REDNESS, DRAINAGE OR FEVER GREATER THAT 101. * WEAR RADHA HOSE 20 HOURS PER DAY FOR 2 WEEKS. *Keep incision clean and dry, and protected. If draining through dressing please call office. . FOLLOW UP VISIT: If appointment is not already scheduled: Please call [facility] to make a follow-up appointment for 2 weeks after your surgery at . Stand-Alone Forms: [employer] / [employer], Opioid Pain Management, Smoking Cessation Medications and DC Order Prescriptions: New aspirin 81 mg Tablet,Delayed Release (Dr/Ec) 81 mg PO BID Qty: 60 RF: 0 acetaminophen 500 mg Tablet 1,000 mg PO Q8 Qty: 60 RF: 0 oxycodone 5 mg Tablet 5 - 10 mg PO .Q4h-6h MDD 6 PRN (Reason: pain) Qty: 30 RF: 0 cefadroxil 500 mg capsule 500 mg PO BID Qty: 14 RF: 0 Continued multivitamin Tablet 1 tab PO QAM RF: 0 naproxen sodium [Aleve] 220 mg Capsule 220 mg PO BID PRN (Reason: Pain) RF: 0 metformin 500 mg Tablet 1,000 mg PO BID RF: 0 pravastatin 10 mg tablet 10 mg PO DAILY RF: 0 loratadine 10 mg tablet 10 mg PO DAILY PRN (Reason: Allergy Symptoms) RF: 0 albuterol sulfate 90 mcg/actuation Hfa Aerosol Inhaler 2 puff INHALATION QID PRN (Reason: Shortness Of Breath Or Wheezing) RF: 0 Flovent HFA 110 mcg/actuation Hfa Aerosol Inhaler 2 puff INHALATION BID RF: 0 Discharge Orders: Discharge Order (Routine); Ordered 06/25/20 Ordered By: Usama Woody/Other Patient Handouts: Prediabetes, 5 Steps for Eating Healthier, A1C Admission Data Admit Date/Time: 06/24/20 12:15 Attending Provider: Cooper Tsai Admit Provider: Cooper Tsai Primary Care Provider: Maximilian Mckeon Other Providers: Samia Arizmendi Other Interventions: Discharge Summary Assessment (RN) Last Done: 06/25/20 10:33
== END 2020-06-25 13:32 | disposition home health service (06) ==
LOC: 3E 06:54 → ASU 06:54